=== PATIENT | female | born 1970 | race Caucasian/White ===

== ENCOUNTER 2019-02-21 15:21 | Outpatient (CLI) | payer OTHER ==
--- NOTE | 2019-02-21 16:41 | MRI ---
EXAM: MRI Cervical Spine WO Con PROVIDED CLINICAL HISTORY: Cervical disc herniation COMPARISON: 01/02/2016 FINDINGS: Cervical alignment is unchanged. Vertebral body heights and intervertebral disc space heights appear preserved. The visualized posterior fossa, cervicomedullary junction and cervical spinal cord demonstrate a stable MR appearance. Short segment syrinx at C6-7 redemonstrated. Regional marrow sign al appears unremarkable. At C2-3, there is no significant central canal or foraminal narrowing apparent. At C3-4, there is no significant central canal or foraminal narrowing apparent. At C4-5, there is no significant central canal or foraminal narrowing apparent. At C5-6, there is a stable disc osteophyte complex right paracentral and subarticular regions produci ng effacement of the right ventrolateral subarachnoid space without cord contact or deformity apparent. No foraminal narrowing is evident. At C6-7, there is no significant central canal or foraminal narrowing apparent. At C7-T1, there is no significant central canal or foraminal narrowing apparent. IMPRESSION: Stable exam.
== END 2019-02-21 15:22 | disposition home or self-care (01) ==
LOC: SCSMRI 15:21
PROVIDERS: ATTEND Anesthesiology Pain Medicine
DX: M50.20 Other cervical disc displacement, unspecified cervical region (principal)
CPT/HCPCS: 72141